=== PATIENT | female | born 1940 | race Caucasian/White ===

== ENCOUNTER → 2018-05-19 13:28 | Outpatient (CLI) | payer MEDICARE, OTHER, SELFPAY ==
--- NOTE | 2018-05-19 | DI.MRI.S_ITS ---
PROCEDURE: MR LUMBAR SPINE WO CON INDICATIONS: Strain of muscle, fascia and tendon of lower back, TECHNIQUE: Noncontrast sagittal T1 spin echo and T2 fast echo, sagittal STIR, axial T1 and T2 fast spin echo through the lumbar spine. In cases with scoliosis, additional coronal T2 fast spin echo may be performed. COMPARISON: None. FINDINGS: Image quality: Excellent. Alignment and Curvature: There is mild L3-L4 and L4-L5 degenerative anterolisthesis. There is trace L1-L2 degenerative retrolisthesis. Convex left curvature of the lumbar spine is noted. Bone Marrow: Marrow is of normal overall signal. No acute vertebral body compression fractures. Spinal Cord: Conus medullaris terminates at the L1 level. Visualized cord demonstrates normal signal and size. Paraspinous Soft Tissues: No paravertebral masses. L1-L2: Loss of disc signal and slight loss of disc height. Mild, diffuse disc bulge. Mild bilateral facet hypertrophy. Mild ligamentum flavum hypertrophy. Mild narrowing of the central canal. Moderate right and mild left neural foraminal narrowing. No neural impingement. L2-L3: Loss of disc signal. Mild, diffuse disc bulge. Mild facet and severe ligamentum flavum hypertrophy. Moderate narrowing of the central canal. Moderate bilateral neural foraminal narrowing. No neural impingement. L3-L4: Loss of disc signal and slight loss of disc height. Minimal, diffuse disc bulge. Severe facet and moderate ligamentum flavum hypertrophy. Mild to moderate narrowing of the central canal. Mild bilateral neural foraminal narrowing. No neural impingement. L4-L5: Loss of disc signal. Severe bilateral facet hypertrophy. Moderate narrowing of the central canal. Mild right neural foraminal narrowing. No neural impingement. L5-S1: Loss of disc signal. Minimal, diffuse disc bulge. Severe bilateral facet hypertrophy. Mild narrowing of the central canal. No neural foraminal narrowing. No neural impingement. IMPRESSION: 1. L3-L4 and L4-L5 grade 1 degenerative spondylolisthesis. 2. Multilevel degenerative disc disease. 3. Multilevel facet arthropathy. 4. Moderate L2-L3 and L4-L5 central canal narrowing. Mild to moderate L3-L4 central canal narrowing. Mild L1-L2 and L5-S1 central canal narrowing. 5. Moderate bilateral L2-L3 neural foraminal narrowing. Moderate right and mild left L1-L2 neural foraminal narrowing. Mild bilateral L3-L4 neural foraminal narrowing. Mild right L4-L5 neural foraminal narrowing. Dictated by: Halina Connell MD, PhD on 05/19/2018 at 22:10 Approved by: Halina Connell MD, PhD on 05/19/2018 at 22:16
== END ==
PROVIDERS: Visit Provider Orthopaedic Surgery
DX: S39.012A Strain of muscle, fascia and tendon of lower back, initial encounter (principal); M43.16 Spondylolisthesis, lumbar region; M51.36 Other intervertebral disc degeneration, lumbar region; M51.37 Other intervertebral disc degeneration, lumbosacral region; M48.061 Spinal stenosis, lumbar region without neurogenic claudication; M48.07 Spinal stenosis, lumbosacral region; M47.816 Spondylosis without myelopathy or radiculopathy, lumbar region; M47.817 Spondylosis without myelopathy or radiculopathy, lumbosacral region
CPT/HCPCS: 72148

== ENCOUNTER → 2018-07-13 10:11 | Outpatient (CLI) | payer MEDICARE, OTHER, SELFPAY ==
--- NOTE | 2018-07-13 | DI.NM.S_ITS ---
PROCEDURE: NM BONE SPECT RADIOPHARMACEUTICAL: 19.9 mCi Tc-99m MDP IV. INDICATIONS: Kissing spine, site unspecified TECHNIQUE: Delayed bone scintigrams were obtained of the region of interest 3-4 hours after intravenous administration of Tc-99m MDP. Additional tomographic (SPECT) imaging was performed and displayed in axial, coronal, and sagittal planes. COMPARISON: [facility], RF, LUMBAR TRANSFORAMINAL MICKY, 05/31/2018, 15:06. [facility], MR, MR LUMBAR SPINE WO CON, 05/19/2018, 13:54. [facility], CR, XR LUMBAR SPINE 2 OR 3 VIEWS, 05/14/2018, 10:59. FINDINGS: Along the lumbosacral spine no trauma or evidence of underlying infection or neoplasm is found. The vertebral body marrow space is not asymmetrically involved by isotope deposition along the displaces, but there is facet osteoarthritis present bilaterally, symmetric. On the sagittal reformatt imaging there appears to be at position of the posterior elements at the thoracolumbar junction with focal increased isotope deposition at the posterior spinous process margins of what appears to be L1 and L2. IMPRESSION: Symmetric facet joint osteoarthritis over the middle and lower thirds of the lumbosacral spine. Posterior spinous process tip apposition at L1 and L2, with secondary increased isotope uptake at the posterior midline at those 2 levels. No trauma found, no infection suspected. No inflammatory component of degenerative disc disease is seen along the vertebral body margins of the LS spine. Dictated by: Isaiah Yi M.D. on 07/13/2018 at 15:05 Approved by: Isaiah Yi M.D. on 07/13/2018 at 15:20
== END ==
PROVIDERS: Visit Provider Orthopaedic Surgery
DX: M48.20 Kissing spine, site unspecified (principal); M47.817 Spondylosis without myelopathy or radiculopathy, lumbosacral region
CPT/HCPCS: 78320; A9503